=== PATIENT | male | born 1955 | race Two or more races ===

== ENCOUNTER 2023-01-09 08:16 | Emergency (ER) | payer OTHER, MEDICAID ==
[~2023-01-09] VITALS: Ht 160 cm; Wt 84.9 kg
[2023-01-09 08:53] VITALS: BP 149/50; PULSE 70; RESP 18; O2SAT 97
[2023-01-09] MEDS ORDERED: ACET-1080 PO (09:20)
[2023-01-09] MEDS ORDERED: METH-1182 PO (09:20)
[2023-01-09 09:26] VITALS: TEMP 98.1
[2023-01-09] MEDS ORDERED: ACETAMINOPHEN 500 MG TAB PO ONE (09:30)
== END 2023-01-09 09:39 | disposition home or self-care (01) ==
LOC: ER 08:16
DX: S23.41XA Sprain of ribs, initial encounter (principal); E11.9 Type 2 diabetes mellitus without complications; I10 Essential (primary) hypertension; K21.9 Gastro-esophageal reflux disease without esophagitis; Z98.890 Other specified postprocedural states; W18.39XA Other fall on same level, initial encounter; Y93.89 Activity, other specified; Y92.89 Other specified places as the place of occurrence of the external cause; Y99.8 Other external cause status
CPT/HCPCS: 71101

== ENCOUNTER 2023-03-02 08:55 | Emergency (ER) | payer OTHER, MEDICAID ==
[~2023-03-02] VITALS: Ht 160 cm; Wt 85.9 kg
[~2023-03-02 08:55] MED LIST: ACET-1080 PO; METH-1182 PO
[2023-03-02 09:24] VITALS: BP 138/84; PULSE 77; RESP 18; TEMP 97.2; O2SAT 96
[2023-03-02] MEDS ORDERED: KETOROLAC TROMETH 60MG/2ML VIAL IM ONE (09:45)
[2023-03-02] MEDS ORDERED: IBUP-1455 PO (10:48)
[2023-03-02] MEDS ORDERED: ACET500T58 PO (10:54)
== END 2023-03-02 10:54 | disposition home or self-care (01) ==
LOC: ER 08:55
DX: M19.90 Unspecified osteoarthritis, unspecified site (principal); I10 Essential (primary) hypertension; E11.9 Type 2 diabetes mellitus without complications; K21.9 Gastro-esophageal reflux disease without esophagitis; Z79.1 Long term (current) use of non-steroidal anti-inflammatories (NSAID); Z79.899 Other long term (current) drug therapy
CPT/HCPCS: 73562; 96372; 99283; J1885

== ENCOUNTER 2023-03-09 12:15 | Emergency (ER) | payer OTHER, MEDICAID ==
[~2023-03-09] VITALS: Ht 157.5 cm; Wt 86.5 kg
[~2023-03-09 12:15] MED LIST changes: +ACET500T58 PO; +IBUP-1455 PO
[2023-03-09 13:51] VITALS: BP 143/86; PULSE 93; RESP 18; TEMP 97.8; O2SAT 97
[2023-03-09] MEDS ORDERED: HYDR-4902 PO (14:39)
[2023-03-09] MEDS ORDERED: HYDROcodone-ACET 5/325MG TAB PO ONE (14:45)
== END 2023-03-09 14:41 | disposition home or self-care (01) ==
LOC: ER 12:15
DX: M25.461 Effusion, right knee (principal); M17.11 Unilateral primary osteoarthritis, right knee; E11.9 Type 2 diabetes mellitus without complications; K21.9 Gastro-esophageal reflux disease without esophagitis; I10 Essential (primary) hypertension
CPT/HCPCS: 29505; 73562

== ENCOUNTER 2023-07-13 13:17 | Emergency (ER) | payer OTHER, MEDICAID ==
[~2023-07-13] VITALS: Ht 157.5 cm; Wt 85.0 kg
[~2023-07-13 13:17] MED LIST changes: +HYDR-4902 PO
[2023-07-13 15:46] VITALS: BP 146/102; PULSE 103; RESP 16; TEMP 98.5; O2SAT 96
[2023-07-13] MEDS ORDERED: BENZ100C97 PO (15:56)
[2023-07-13] MEDS ORDERED: PROM1SOL4 PO (15:56)
[2023-07-13] MEDS ORDERED: AUG875T PO (15:56)
== END 2023-07-13 16:29 | disposition home or self-care (01) ==
LOC: ER 13:17
DX: B34.9 Viral infection, unspecified (principal); I10 Essential (primary) hypertension; E11.9 Type 2 diabetes mellitus without complications; K21.9 Gastro-esophageal reflux disease without esophagitis
CPT/HCPCS: 71045